=== PATIENT | male | born 1995 | race Caucasian/White ===

== ENCOUNTER 2018-11-01 23:09 | Inpatient (IN) | payer OTHER ==
[~2018-11-01] VITALS: Ht 180.3 cm; Wt 89.8 kg
[~2018-11-01 23:09] MED LIST: HYDR-1179 PO
--- NOTE | 2018-11-01 23:14 | ED.ADGEN ---
Past History Past Medical History: No Pertinent History, Anxiety, Bronchitis, Depression Past Surgical History: No Surgical History Alcohol Use: None Drug Use: None Adult General Chief Complaint Chief Complaint "... I was sick 3 weeks ago with influenza--he get a flu swab at [facility].... They put me on Tamiflu for 3 days .. I got better right away.. did fine for last couple of weeks... .. But now sick again sore throat, fever, chills, coughing..dyspnea.. 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 Symptoms have been present 2 days. Unable to make an appointment at [facility] because of schedule full at the clinic. No recent travel overseas. Up-to-date with vaccinations. Did have recent diagnosis 3 weeks ago of influenza and treated with Tamiflu. Patient reports return of symptoms he had 3 weeks ago. No specific ill contacts. Patient normally healthy.. Patient has as child preschool did have some asthma complaints. Pt. has no history of hospitalizations or treatments for asthma as a child or teenager. Patient does have a history of anxiety and depression. Patient nonsmoker. Review of Systems Review of Systems Constitutional: History of fever or chills [] Eyes: Denies change in visual acuity, redness, or eye pain [] HENT: History nasal congestion , drainage and sore throat [] Respiratory: History of nonproductive cough with burning sensation and wheezing. Dyspnea Cardiovascular: No additional information not addressed in HPI [] GI: Denies abdominal pain, nausea, vomiting, bloody stools or diarrhea [] : Denies dysuria or hematuria [] Musculoskeletal: Complaints of myalgia and arthralgia Integument: Denies rash or skin lesions [] Neurologic: Denies headache, focal weakness or sensory changes [] Endocrine: Denies polyuria or polydipsia [] All other systems were reviewed and found to be within normal limits, except as documented in this note. Family History Family History Noncontributory Current Medications Current Medications Current Medications Medications (Trade) Dose Ordered Sig/Andrés Start Time Stop Time Status Last Admin Dose Admin Albuterol Sulfate (Ventolin Hfa Inhaler) 2 puff 1X ONCE 11/02/18 00:15 11/02/18 01:08 DC 11/02/18 00:20 2 PUFF Albuterol/ Ipratropium (Duoneb) 3 ml 1X ONCE 11/02/18 01:30 11/02/18 01:58 DC 11/02/18 01:29 3 ML Azithromycin (Zithromax) 500 mg 1X ONCE 11/02/18 00:15 11/02/18 01:08 DC 11/02/18 00:42 500 MG Ceftriaxone Sodium 1 gm/ Sodium Chloride 50 ml @ 100 mls/hr 1X ONCE 11/02/18 00:15 11/02/18 01:08 DC 11/02/18 00:43 100 MLS/HR Ceftriaxone Sodium (Rocephin) 1 gm STK-MED ONCE 11/02/18 00:29 11/02/18 00:30 DC Prednisone (Prednisone) 50 mg 1X ONCE 11/01/18 23:45 11/02/18 01:08 DC 11/01/18 23:53 50 MG Sodium Chloride 50 ml @ As Directed STK-MED ONCE 11/02/18 00:29 11/02/18 00:30 DC Allergies telf-hqo-mrtelte Tylenol and Robitussin etc. Allergies Allergies Allergies Coded Allergies Type Severity Reaction Last Updated Verified No Known Drug Allergies 10/09/16 No Physical Exam Physical Exam Constitutional: Well developed, well nourished, moderately acute distress, non- toxic appearance. [] HENT: Normocephalic, atraumatic, bilateral external ears normal, oropharynx moist, injected pharynx postnasal drainage,, no oral exudates, nose swollen turbinates and rhinorrhea clear] Eyes: PERRLA, EOMI, conjunctiva normal, no discharge. [] Neck: Normal range of motion, no tenderness, supple, no stridor. [] Cardiovascular: Tachycardia Heart rate regular rhythm, no murmur [] Lungs & Thorax: Bilateral breath sounds equal apex with few scattered wheezes on auscultation. Patient does have some posterior rhonchi. Abdomen: Bowel sounds normal, soft, no tenderness, no masses, no pulsatile masses. [] Skin: Warm, dry, no erythema, no rash. Tattoos. Back: No tenderness, no CVA tenderness. [] Extremities: No tenderness, no cyanosis, no clubbing, ROM intact, no edema. [] No cording in legs. Muscular Neurologic: Alert and oriented X 3, normal motor function, normal sensory function, no focal deficits noted. [] Psychologic: Affect anxious, judgement normal, mood normal. [] Current Patient Data Vital Signs Vital Signs Date Time Temp Pulse Resp B/P (MAP) Pulse Ox O2 Delivery O2 Flow Rate FiO2 11/02/18 01:16 98 20 131/86 (101) 90 Room Air 11/01/18 23:10 99.3 Lab Results Laboratory Tests Test 11/01/18 23:55 11/02/18 00:40 Influenza Type A (Rapid) Negative (NEGATIVE) Influenza Type B (Rapid) Negative (NEGATIVE) Group A Streptococcus Rapid Negative (NEGATIVE) White Blood Count 10.9 x10^3/uL (4.0-11.0) Red Blood Count 5.55 x10^6/uL (4.30-5.70) Hemoglobin 17.9 g/dL (13.0-17.5) H Hematocrit 51.3 % (39.0-53.0) Mean Corpuscular Volume 93 fL (79-100) Mean Corpuscular Hemoglobin 32 pg (25-35) Mean Corpuscular Hemoglobin Concent 35 g/dL (31-37) Red Cell Distribution Width 12.9 % (11.5-14.5) Platelet Count 278 x10^3/uL (140-400) Neutrophils (%) (Auto) 74 % (31-73) H Lymphocytes (%) (Auto) 16 % (24-48) L Monocytes (%) (Auto) 9 % (0-9) Eosinophils (%) (Auto) 1 % (0-3) Basophils (%) (Auto) 1 % (0-3) Neutrophils # (Auto) 8.0 x10^3uL (1.8-7.7) H Lymphocytes # (Auto) 1.7 x10^3/uL (1.0-4.8) Monocytes # (Auto) 1.0 x10^3/uL (0.0-1.1) Eosinophils # (Auto) 0.1 x10^3/uL (0.0-0.7) Basophils # (Auto) 0.1 x10^3/uL (0.0-0.2) Prothrombin Time 11.0 SEC (9.4-11.4) Prothrombin Time INR 1.1 (0.9-1.1) PTT 32 SEC (23-33) D-Dimer (Mira) 0.22 mg/L (0.00-0.50) Sodium Level 139 mmol/L (136-145) Potassium Level 3.3 mmol/L (3.5-5.1) L Chloride Level 99 mmol/L (98-107) Carbon Dioxide Level 30 mmol/L (21-32) Anion Gap 10 (6-14) Blood Urea Nitrogen 12 mg/dL (8-26) Creatinine 0.9 mg/dL (0.7-1.3) Estimated GFR (Cockcroft-Gault) 106.5 Glucose Level 95 mg/dL (70-99) Calcium Level 9.5 mg/dL (8.5-10.1) Troponin I Quantitative < 0.017 ng/mL (0-0.055) KX-Nra-L-Type Natriuretic Peptide 17 pg/mL (0-124) EKG EKG [] Radiology/Procedures Radiology/Procedures My interpretation chest x-ray shows normal cardiac silhouette, does have patchy infiltrates some posterior bronchogram . [] No large loculations. Course & Med Decision Making Course & Med Decision Making Pertinent Labs and Imaging studies reviewed. (See chart for details). DC was planning on discharge home on Zithromax, prednisone, and MDI. Patient remained hypoxic after repeated treatments and required 2 L nasal cannula to keep sats above 90%. Pt. admitted to Dr. Bragg- for Respiratory Insuf. and Hypoxia. Suspect reactive airway, viral bronchitis/ pneumonia. Plan early discharge if maintains saturations on room air. [] Final Impression Final Impression 1. Respiratory insufficiency-hypoxia 2. Hx. influenza 3 weeks ago 3. Hypoxia 4. Viral Bronchitis/ Pneumonia 5. Reactive Airway Dragon Disclaimer Dragon Disclaimer This electronic medical record was generated, in whole or in part, using a voice recognition dictation system. Discharge Summary Visit Information Final Diagnosis Problems Medical Problems: (1) Bronchitis Status: Acute Brief Hospital Course Allergies Allergies Coded Allergies Type Severity Reaction Last Updated Verified No Known Drug Allergies 10/09/16 No Vital Signs Vital Signs Date Time Temp Pulse Resp B/P (MAP) Pulse Ox O2 Delivery O2 Flow Rate FiO2 11/02/18 01:16 98 20 131/86 (101) 90 Room Air 11/01/18 23:10 99.3 Lab Results Laboratory Tests Test 11/01/18 23:55 11/02/18 00:40 Influenza Type A (Rapid) Negative (NEGATIVE) Influenza Type B (Rapid) Negative (NEGATIVE) Group A Streptococcus Rapid Negative (NEGATIVE) White Blood Count 10.9 x10^3/uL (4.0-11.0) Red Blood Count 5.55 x10^6/uL (4.30-5.70) Hemoglobin 17.9 g/dL (13.0-17.5) Hematocrit 51.3 % (39.0-53.0) Mean Corpuscular Volume 93 fL (79-100) Mean Corpuscular Hemoglobin 32 pg (25-35) Mean Corpuscular Hemoglobin Concent 35 g/dL (31-37) Red Cell Distribution Width 12.9 % (11.5-14.5) Platelet Count 278 x10^3/uL (140-400) Neutrophils (%) (Auto) 74 % (31-73) Lymphocytes (%) (Auto) 16 % (24-48) Monocytes (%) (Auto) 9 % (0-9) Eosinophils (%) (Auto) 1 % (0-3) Basophils (%) (Auto) 1 % (0-3) Neutrophils # (Auto) 8.0 x10^3uL (1.8-7.7) Lymphocytes # (Auto) 1.7 x10^3/uL (1.0-4.8) Monocytes # (Auto) 1.0 x10^3/uL (0.0-1.1) Eosinophils # (Auto) 0.1 x10^3/uL (0.0-0.7) Basophils # (Auto) 0.1 x10^3/uL (0.0-0.2) Prothrombin Time 11.0 SEC (9.4-11.4) Prothromb Time International Ratio 1.1 (0.9-1.1) Activated Partial Thromboplast Time 32 SEC (23-33) D-Dimer (Mira) 0.22 mg/L (0.00-0.50) Sodium Level 139 mmol/L (136-145) Potassium Level 3.3 mmol/L (3.5-5.1) Chloride Level 99 mmol/L (98-107) Carbon Dioxide Level 30 mmol/L (21-32) Anion Gap 10 (6-14) Blood Urea Nitrogen 12 mg/dL (8-26) Creatinine 0.9 mg/dL (0.7-1.3) Estimated GFR (Cockcroft-Gault) 106.5 Glucose Level 95 mg/dL (70-99) Calcium Level 9.5 mg/dL (8.5-10.1) Troponin I Quantitative < 0.017 ng/mL (0-0.055) MH-Bwy-R-Type Natriuretic Peptide 17 pg/mL (0-124) Brief Hospital Course Mr. Bland is a 22 old male who presented with respiratory insufficiency and hypoxia. Unable to maintain saturations above 90 on room air admitted for further evaluation and treatment Dr. Bragg. Discharge Information Condition at Discharge: Improved Dischare Medications Current Medications Prednisone (Prednisone) 50 mg 1X ONCE PO Last administered on 11/01/18at 23:53 ; Admin Dose 50 MG; Start 11/01/18 at 23:45; Stop 11/02/18 at 01:08; Status DC Albuterol Sulfate (Ventolin Hfa Inhaler) 2 puff 1X ONCE INH Last administered on 11/02/18at 00:20; Admin Dose 2 PUFF; Start 11/02/18 at 00:15; Stop 11/02/18 at 01:08; Status DC Ceftriaxone Sodium 1 gm/ Sodium Chloride 50 ml @ 100 mls/hr 1X ONCE IV Last administered on 11/02/18at 00:43; Admin Dose 100 MLS/HR; Start 11/02/18 at 00:15 ; Stop 11/02/18 at 01:08; Status DC Azithromycin (Zithromax) 500 mg 1X ONCE PO Last administered on 11/02/18at 00: 42; Admin Dose 500 MG; Start 11/02/18 at 00:15; Stop 11/02/18 at 01:08; Status DC Ceftriaxone Sodium (Rocephin) 1 gm STK-MED ONCE .ROUTE ; Start 11/02/18 at 00:29 ; Stop 11/02/18 at 00:30; Status DC Sodium Chloride 50 ml @ As Directed STK-MED ONCE .ROUTE ; Start 11/02/18 at 00: 29; Stop 11/02/18 at 00:30; Status DC Albuterol/ Ipratropium (Duoneb) 3 ml 1X ONCE NEB Last administered on at 01:29; Admin Dose 3 ML; Start 11/02/18 at 01:30; Stop 11/02/18 at 01:58; Status DC Active Scripts Active Azithromycin Tablet (Azithromycin) 250 Mg Tablet 250 Mg PO DAILY 5 Days Prednisone 50 Mg Tablet 50 Mg PO DAILY 5 Days Acetaminophen 500 Mg Tablet 1,000 Mg PO QIDPRN PRN Benadryl (Diphenhydramine Hcl) 25 Mg Capsule 50 Mg PO QIDPRN PRN Zofran (Ondansetron Hcl) 8 Mg Tablet 8 Mg PO QIDPRN PRN Hydrocodone-Ibuprofen 7.5-200 (Hydrocodone/Ibuprofen) 1 Each Tablet 1 Tab PO PRN Q6HRS PRN Hydrocodone-Ibuprofen 7.5-200 (Hydrocodone/Ibuprofen) 1 Each Tablet 1 Tab PO PRN Q6HRS PRN Dragon Disclaimer This chart was dictated in whole or in part using Voice Recognition software in a busy, high-work load, and often noisy Emergency Department environment. It may contain unintended and wholly unrecognized errors or omissions. KATHY RUBIN MD Nov 01, 2018 23:14
[2018-11-01] MEDS ORDERED: ONDA8TAB9 PO (23:36)
[2018-11-01] MEDS ORDERED: HYDR-1179 PO (23:36)
[2018-11-01] MEDS ORDERED: ACET500T68 PO (23:38)
[2018-11-01] MEDS ORDERED: DIPH25CA58 PO (23:38)
[2018-11-01] MEDS ORDERED: predniSONE 10 MG TABLET PO ONE (23:45)
[2018-11-02] VITALS (7 sets, daily range): BP systolic 128–142; BP diastolic 81–89
[2018-11-02] MEDS ORDERED: AZITHROMYCIN 250 MG TABLET. PO ONE (00:15)
[2018-11-02] MEDS ORDERED: ALBUTEROL SULFATE 8GM INHALER. INH ONE (00:15)
[2018-11-02] MEDS ORDERED: cefTRIAXone SODIUM 1 GM VIAL ONE (00:29)
[2018-11-02] MEDS ORDERED: IV NORMAL SALINE 50ML 50 ML ONE (00:29)
[2018-11-02 00:41] LABS: INFLUENZA A PATIENT NEGATIVE (NEGATIVE); INFLUENZA B PATIENT NEGATIVE (NEGATIVE)
[2018-11-02 01:03] LABS: BASO # 0.1 x10^3/uL (0.0-0.2); BASO % 1 % (0-3); EOS # 0.1 x10^3/uL (0.0-0.7); EOS % 1 % (0-3); HEMATOCRIT 51.3 % (39.0-53.0); HEMOGLOBIN 17.9 g/dL (13.0-17.5); LYMPH # 1.7 x10^3/uL (1.0-4.8); LYMPH % 16 % (24-48); MEAN CORPUSCULAR HEMOGLOBIN 32 pg (25-35); MEAN CORPUSCULAR HGB CONC 35 g/dL (31-37); MEAN CORPUSCULAR VOLUME 93 fL (79-100); MONO % 9 % (0-9); NEUT % 74 % (31-73); PLATELET COUNT 278 x10^3/uL (140-400); RED BLOOD COUNT 5.55 x10^6/uL (4.30-5.70); RED CELL DISTRIBUTION WIDTH 12.9 % (11.5-14.5); WHITE BLOOD COUNT 10.9 x10^3/uL (4.0-11.0)
[2018-11-02 01:23] LABS: CALCIUM 9.5 mg/dL (8.5-10.1); CREATININE 0.9 mg/dL (0.7-1.3); GFR 106.5; POTASSIUM 3.3 mmol/L (3.5-5.1)
[2018-11-02] MEDS ORDERED: IPRATRPIUM/ALBUTEROL 0.5/2.5MG 3 ML NEBU. NEB ONE (01:30)
[2018-11-02] MEDS ORDERED: ONDANSETRON PF 4 MG/2 ML VIAL. IV PRN (02:00)
[2018-11-02] MEDS ORDERED: PRED50TA PO (02:06)
[2018-11-02] MEDS ORDERED: AZIT250T6 PO (02:07)
[2018-11-02] MEDS ORDERED: POTASSIUM CHLORIDE 20 MEQ TABLET.ER. PO ONE (04:00)
[2018-11-02] MEDS ORDERED: FLUO40CA9 PO (04:01)
[2018-11-02] MEDS: IPRATRPIUM/ALBUTEROL 0.5/2.5MG 3 ML NEBU. NEB SCH ×4 (05:20→21:25)
--- NOTE | 2018-11-02 08:07 | RAD ---
Chest, 2 views, 11/01/2018: HISTORY: Cough, fever, chills The heart size is normal. The lungs are clear. There is no evidence of pleural fluid. IMPRESSION: No acute cardiopulmonary abnormality is detected. Electronically signed by: Loc Crockett MD (11/02/2018 8:04 AM) [facility]
[2018-11-02] MEDS ORDERED: predniSONE 10 MG TABLET PO SCH (09:00)
--- NOTE | 2018-11-02 11:37 | EKG ---
[address] [address] Test Date: 2018-11-02 Test Time: 00:33:50 Pat Name: RAEGAN BURGOS Department: Room: 119 A Gender: M Occupational Work Experience Teacher: : 1995 Requested By: KATHY RUBIN Order Number: [id number] Reading MD: Bertin Perez Measurements Intervals [place] Rate: 87 P: 38 IA: 176 QRS: 73 QRSD: 106 T: 46 QT: 350 QTc: 422 Interpretive Statements SINUS RHYTHM NONSPECIFIC ST-T WAVE CHANGES. CONSIDER INFERIOR MYOCARDIAL DAMAGE Electronically Signed On 11-06-2018 10:40:49 BLUE [employer]PLIT [employer]IMMER by Bertin Perez
[2018-11-02] MEDS ORDERED: IOHEXOL 350 MG/ML 100 ML VIAL. IV ONE (16:45)
[2018-11-02] MEDS ORDERED: CONTRAST GIVEN MC PRN (16:45)
--- NOTE | 2018-11-02 17:06 | HP ---
ADMIT DATE: 11/02/2018 HISTORY OF PRESENT ILLNESS: The patient is a 22-year-old male patient who came to the Emergency Room complaining of fever, chills, pharyngitis, nonproductive cough, chest burning, myalgia, arthralgia and malaise. The symptoms have been present for 2 days, unable to make an appointment ____ because of scheduled follow the clinic. He apparently has had flu about 3 weeks ago. The patient denied any recent overseas travel or sick contact. His vaccination is up-to-date. He was treated with Tamiflu about 3 weeks ago. The patient reports return of symptoms, he had 3 weeks ago. The patient is normally healthy. As a child he did have asthma complaint and apparently when he was in high school he also was tested and had the medication for allergens. He has history of anxiety and depression for which he is on Prozac. PAST MEDICAL HISTORY: Significant for questionable bronchial asthma, anxiety and depression. PAST SURGICAL HISTORY: Unremarkable. ALLERGIES: He has no known drug allergies. MEDICATION: Prozac. FAMILY HISTORY: Significant for the fact that his sister younger has asthma. Both parents are healthy. SOCIAL HISTORY: He is single. He does not smoke cigarettes, but he vapes. He drinks alcohol occasionally. He does not use any drugs. PHYSICAL EXAMINATION: GENERAL: On arrival to the Emergency Room, he was clearly hypoxic and his oxygen saturation could not be improved despite multiple treatments with steroids and inhalers. On arrival there was no pallor, jaundice, cyanosis, or thyromegaly. No jugular venous distension. No limb edema. VITAL SIGNS: His heart rate was 90, blood pressure was 131/86, temperature was 99.3, respiratory rate was 18 and oxygen saturation was 90%. HEAD, EYES, EARS, NOSE AND THROAT: Showed normocephalic, atraumatic. NECK: Supple. HEART: Showed normal first and second heart sounds. No gallop, rub or murmur. CHEST: Clear to auscultation. No crepitation or rhonchi. ABDOMEN: Distended, soft, nontender. No guarding or rigidity. No organomegaly. All hernial orifices intact. Bowel sounds normal. NEUROLOGIC: He was awake, alert, responding appropriately. All cranial nerves are intact. EXTREMITIES: He moves extremities without difficulty, ambulates without assistance or assistive devices. LABORATORY DATA: His lab work on admission showed a white cell count of 10,900, hemoglobin was 17.9, hematocrit 51.3, MCV 93, and platelet count 278,000. His prothrombin time was 11, INR 1.1, aPTT was 32, and D-dimer was 0.22. His chemistry showed a serum sodium 139, potassium 3.3, chloride 99, bicarbonate 30, anion gap of 10, BUN 12, creatinine 0.9, estimated GFR was 160 mL per minute. His glucose was 95, calcium was 9.5 and beta natriuretic peptide was 17. His influenza A and B were negative. Group A Streptococcus was negative. His chest x-ray showed that the heart is normal. The lungs are clear. There is no evidence of pleural fluid. ASSESSMENT AND PLAN: The patient was admitted with acute hypoxic respiratory failure, possible viral pneumonitis and reactive airway/bronchial asthma. My plan is to continue with IV steroids. I will arrange for him to have a CT scan of the chest and also an echocardiogram to see if there is any arteriovenous shunt, given his extreme hypoxia and markedly elevated hemoglobin and hematocrit. NILSA TEAGUE MD DR: RONEN/rubia JOB#: [id number] / [id number]
--- NOTE | 2018-11-02 17:56 | RAD ---
PQRS Compliance Statement: One or more of the following individualized dose reduction techniques were utilized for this examination: 1. Automated exposure control 2. Adjustment of the mA and/or kV according to patient size 3. Use of iterative reconstruction technique CT angiography chest with contrast 11/02/2018 4:48 PM INDICATION: Acute hypoxia, coughing with history of flu COMPARISON: None available TECHNIQUE: Axial CT images of the chest were obtained after the intravenous administration of nonionic contrast, 100 mL Omnipaque 350. Coronal and sagittal reformats are provided. Maximum intensity projection images of the thoracic vasculature are provided. FINDINGS: The thyroid gland is normal in appearance. There are no pathologically enlarged axillary, mediastinal or hilar lymph nodes. The heart size is within normal limits. No significant pericardial effusion. Thoracic aorta is normal in course and caliber. Minimal residual thymic tissue is visualized. There is inadequate opacification of the pulmonary arterial system with limited evaluation of the segmental and subsegmental pulmonary arteries. There there are no filling defects within the pulmonary arterial system to suggest acute or chronic pulmonary embolus. There are no suspicious solid noncalcified pulmonary nodules. There is bronchial wall thickening compatible with bronchitis. Mucous plugging is identified in the bilateral lower lobes with subpleural bandlike consolidative changes most favoring subsegmental atelectasis. Early or resolving pulmonary infiltrate may have similar appearance. There are no pleural effusions. No pulmonary vascular congestion or pneumothorax. Visualized portions of the upper abdomen are within normal limits. No suspicious osseous lesions are visualized. IMPRESSION: There is no evidence for acute or chronic pulmonary embolism involving the main and lobar pulmonary arteries. Bilateral lower lobe bronchial wall thickening compatible with bronchitis with associated mucous plugging and likely postobstructive atelectasis versus pneumonitis. Electronically signed by: Adeline Narayanan MD (11/02/2018 5:53 PM) [facility]
[2018-11-02] MEDS: AZITHROMYCIN 250 MG TABLET. PO SCH (20:39)
[2018-11-02] MEDS: methylPREDNISolone SOD SUCC PF 40 MG/ML VIAL. IV SCH (20:40)
[2018-11-03] MEDS: methylPREDNISolone SOD SUCC PF 40 MG/ML VIAL. IV SCH ×3 (05:13→20:53)
[2018-11-03 05:28] VITALS: BP 148/90
[2018-11-03] MEDS: IPRATRPIUM/ALBUTEROL 0.5/2.5MG 3 ML NEBU. NEB SCH (05:51)
[2018-11-03 06:48] LABS: BASO % 0 % (0-3); EOS % 0 % (0-3); HEMATOCRIT 49.4 % (39.0-53.0); HEMOGLOBIN 17.4 g/dL (13.0-17.5); LYMPH # 1.2 x10^3/uL (1.0-4.8); LYMPH % 15 % (24-48); MEAN CORPUSCULAR HEMOGLOBIN 33 pg (25-35); MEAN CORPUSCULAR HGB CONC 35 g/dL (31-37); MEAN CORPUSCULAR VOLUME 93 fL (79-100); MONO # 0.4 x10^3/uL (0.0-1.1); MONO % 5 % (0-9); NEUT # 6.4 x10^3uL (1.8-7.7); NEUT % 80 % (31-73); PLATELET COUNT 295 x10^3/uL (140-400); RED BLOOD COUNT 5.34 x10^6/uL (4.30-5.70); RED CELL DISTRIBUTION WIDTH 12.9 % (11.5-14.5)
[2018-11-03 07:01] LABS: ALBUMIN 4.1 g/dL (3.4-5.0); CALCIUM 9.6 mg/dL (8.5-10.1); CREATININE 0.9 mg/dL (0.7-1.3); GFR 106.5; POTASSIUM 3.8 mmol/L (3.5-5.1); TOTAL BILIRUBIN 0.9 mg/dL (0.2-1.0); TOTAL PROTEIN 8.1 g/dL (6.4-8.2)
[2018-11-03 10:46] VITALS: BP 118/67
--- NOTE | 2018-11-03 10:51 | CARD ---
MR#: [id number] Date of Study: 11/03/2018 Ordering Physician: NILSA TEAGUE, Referring Physician: NILSA TEAGUE, Tech: Candy Zaragoza APPROVED REPORT EXAM: Two-dimensional and M-mode echocardiogram with Doppler and color Doppler. Other Information Quality : GoodHR: 84bpm INDICATION Hypoxia Echo Enhancing Agent Indication: Rule Out Septal Defect Agent/Amount Used: Agitated [id number] 2D DIMENSIONS RVDd3.4 (2.9-3.5cm)Left Atrium(2D)3.6 (1.6-4.0cm) IVSd0.9 (0.7-1.1cm)Aortic Root(2D)3.5 (2.0-3.7cm) LVDd5.4 (3.9-5.9cm)LVOT Diameter2.2 (1.8-2.4cm) PWd1.0 (0.7-1.1cm)LVDs2.9 (2.5-4.0cm) FS (%) 46.2 %SV110.4 ml LVEF(%)77.1 (>50%) Aortic Valve AoV Peak Pako.174.4cm/sAoV VTI36.7cm AO Peak GR.12.2mmHgLVOT Peak Pako.136.9cm/s LVOT VTI 28.73cmAO Mean GR.7mmHg JIMMY (VMAX)2.23dp3NXY (VTI)2.99cm2 Mitral Valve MV E Npcrghgn23.6cm/sMV DECEL [id number] MV A Lmevnvnw09.8cm/sE/A Ratio1.3 Pulmonary Valve PV Peak Vosjbbbp129.0cm/sPV Peak Grad.6mmHg Tricuspid Valve TR P. Mbjaankv947zf/sRAP ZPRHRFXK8coKh TR Peak Gr.64euWnLZEY75exCd Pulmonary Vein S1 Aerjzipd82.8cm/sD2 Zfxsrson92.7cm/s LEFT VENTRICLE The left ventricle is normal size. There is normal left ventricular wall thickness. The left ventricu lar systolic function is normal. The Ejection Fraction is 55-60%. There is normal LV segmental wall m otion. The left ventricular diastolic function and filling is normal for age. RIGHT VENTRICLE The right ventricle is normal size. There is normal right ventricular wall thickness. The right ventr icular systolic function is normal. ATRIA The left atrium size is normal. The right atrium is borderline dilated. The interatrial septum is int act with no evidence for an atrial septal defect or patent foramen ovale as noted on 2-D or Doppler i maging. Injection of bubbles documented no interatrial shunt. AORTIC VALVE The aortic valve is normal in structure and function. Doppler and Color Flow revealed no significant aortic regurgitation. There is no significant aortic valvular stenosis. MITRAL VALVE The mitral valve is normal in structure and function. There is no evidence of mitral valve prolapse. There is no mitral valve stenosis. Doppler and Color Flow revealed no mitral valve regurgitation note d. TRICUSPID VALVE The tricuspid valve is normal in structure and function. Doppler and Color Flow revealed trace tricus pid regurgitation. There is no tricuspid valve stenosis. PULMONIC VALVE The pulmonary valve is normal in structure and function. Doppler and Color Flow revealed no pulmonic valvular regurgitation. GREAT VESSELS The aortic root is normal in size. The IVC is normal in size and collapses >50% with inspiration. PERICARDIAL EFFUSION There is no evidence of significant pericardial effusion. Critical Notification Critical Value: No <Conclusion> The left ventricular systolic function is normal. The Ejection Fraction is 55-60%. There is normal LV segmental wall motion. Trace tricuspid regurgitation. There is no evidence of significant pericardial effusion. Injection of bubbles documented no interatrial shunt. Signed by : Levon Salmeron, Electronically Approved : 11/03/2018 10:51:17
[2018-11-03 15:11] VITALS: BP 128/79
[2018-11-03 19:35] VITALS: BP 131/78
--- NOTE | 2018-11-03 20:28 | PN ---
DATE: 11/03/2018 SUBJECTIVE: The patient is resting flat, comfortably, in no apparent distress. He is on half liter of oxygen, maintaining his oxygen saturation at 94%. He is more comfortable. His cough is more productive today. We did a CT scan of the chest with PE protocol, which basically showed that there is no evidence of acute or chronic pulmonary embolism involving the main and lobar pulmonary arteries. He has bilateral lower lobe bronchial wall thickening compatible with bronchitis and with associated mucus plugging and likely post-obstructive atelectasis versus pneumonitis. We did also an echocardiogram with bubble study, which basically showed that his left ventricular systolic function is normal, ejection fraction 55-60%. He has normal left ventricular segmental wall motion, trace tricuspid regurgitation. There is no evidence of significant pericardial effusion. The injection of bubbles documented no intraatrial shunt. PHYSICAL EXAMINATION: GENERAL: When I examined him this morning he was resting slightly propped up in bed, clearly more comfortable. There was no pallor, jaundice, cyanosis, or thyromegaly. No jugular venous distension. No limb edema. VITAL SIGNS: His heart rate was 66, blood pressure was 118/67. His temperature was 97.4, respiratory rate 20, and oxygen saturation was 93% on 1-1/2 liters of oxygen. HEAD, EYES, EARS, NOSE, AND THROAT: Showed normocephalic, atraumatic. NECK: Supple. HEART: Showed normal first and second heart sounds with no gallop, rub, or murmur. CHEST: Clear to auscultation. No crepitation or rhonchi. ABDOMEN: Distended, soft, nontender. No guarding or rigidity. No organomegaly. All hernial orifice intact. Bowel sounds normal. NEUROLOGIC: He is awake, alert, responding appropriately. Cranial nerves intact. He moves extremities without difficulty, ambulates without assistance or assistive devices. LABORATORY DATA: His lab work showed a white cell count of 8000, hemoglobin 17.4, hematocrit 49, MCV 93, and platelet count 295,000. Serum sodium was 140, potassium 3.8, chloride 101, bicarbonate 26, anion gap of 13, BUN 15, creatinine 0.9, estimated GFR was 106 mL per minute. His glucose was 148, calcium was 9.6. Total bilirubin, AST, ALT, alkaline phosphatase were normal. His total protein was 8.1, albumin was 4.1. His influenza A and B are negative. Group A streptococcus rapid test was negative. ASSESSMENT: 1. Acute hypoxic respiratory failure. 2. Acute severe asthma. 3. Bronchopneumonia. 4. Secondary erythrocytosis. PLAN: To continue with steroid treatment. Continue with inhalers. Continue with IV antibiotic. NILSA TEAGUE MD DR: RONEN/rubia JOB#: [id number] / [id number]
[2018-11-03] MEDS: AZITHROMYCIN 250 MG TABLET. PO SCH (20:53)
[2018-11-04] MEDS: methylPREDNISolone SOD SUCC PF 40 MG/ML VIAL. IV SCH ×3 (05:36→21:50)
[2018-11-04 05:58] VITALS: BP 146/87
[2018-11-04] MEDS ORDERED: ALBU2.5V8 INH (10:01)
[2018-11-04] MEDS ORDERED: AZIT250T PO (10:01)
[2018-11-04] MEDS ORDERED: PRED20TA PO (10:01)
--- NOTE | 2018-11-04 10:59 | DS ---
DATE OF DISCHARGE: 11/04/2018 HOSPITAL COURSE: The patient is a 22-year-old male patient who was admitted with complaint of shortness of breath and fever, chills, pharyngitis, nonproductive cough, chest burning, myalgia, arthralgia and malaise. This symptoms have been present for about 2 days prior to admission and was evaluated in the Emergency Room, was found to be in acute hypoxic respiratory failure and marked wheezing and the patient was admitted with acute asthma exacerbation. He was treated with IV antibiotics, Solu-Medrol as well as nebulized treatment. His oxygen saturation initially was difficult to get above 90 without oxygen; however, I have seen him today on ambulation, he was not able to maintain his oxygen saturation 94% and 96% at rest. He stated that he was told that when he was younger, he had some cardiac problem and given his severe hypoxia initially and marked and the secondary erythrocytosis, we did order an echocardiogram, which basically showed no evidence of intraatrial shunt and therefore as he remains hemodynamically stable, his chest was clear today and his oxygen saturation is much improved, a decision was made to discharge him home to continue on oral antibiotic and tapering course of steroids and inhaler. I have also made an arrangement for him to be seen by the configuration manager at . PHYSICAL EXAMINATION: GENERAL: When I examined him today, he was sitting on the edge of the bed comfortably, in no apparent respiratory distress. No pallor, jaundice, cyanosis or thyromegaly. No jugular venous distention. No lower limb edema. VITAL SIGNS: His heart rate was 54, blood pressure was 146/87, his temperature was 97.3, respiratory rate was 16 and oxygen saturation was 96% on room air. HEENT: Examination of the head, eyes, ears, nose and throat showed normocephalic, atraumatic. NECK: Supple. HEART: Showed normal first and second heart sounds. No gallop, rub or murmur. CHEST: Clear to auscultation. No crepitation or rhonchi. ABDOMEN: Distended, soft, nontender. NEUROLOGIC: He was awake, alert, responding appropriately. His cranial nerves are intact. EXTREMITIES: He moves extremities without difficulty, ambulates without assistance or assistive devices. His intake and output are incompletely recorded. LABORATORY DATA: His lab work showed a white cell count of 8000, hemoglobin 17, hematocrit 49, MCV 93 and platelet count of 295,000 with normal manual differential. His chemistry showed a serum sodium 140, potassium 3.8, chloride 101, bicarbonate 16, anion gap of 13, BUN 15, creatinine was 0.9, estimated GFR was 160 mL per minute, his glucose 148, calcium was 9.6. Total bilirubin, AST, ALT, alkaline phosphatase were normal. Total protein was 8.1, albumin was 4.1. His influenza A and B were negative. Group A Strep test was negative. DISCHARGE MEDICATIONS: He was discharged home to continue albuterol sulfate, Proventil 2 puffs every 4 hours as needed, azithromycin 250 mg daily for 5 more days, prednisone 40 mg once a day for 3 days, then 30 mg once a day for 3 days, 20 mg once a day for 3 days, and 10 mg once a day for 3 days. Continue also his Prozac 40 mg daily. FINAL DISCHARGE DIAGNOSES: 1. Acute hypoxic respiratory failure, resolved. 2. Acute asthma exacerbation. 3. Depression. NILSA TEAGUE MD DR: RONEN/rubia JOB#: [id number] / [id number]
[2018-11-04 11:11] VITALS: BP 127/80
[2018-11-04] MEDS ORDERED: ALBUTEROL SULFATE 2.5 MG/3 ML NEBU. NEB PRN (14:30)
[2018-11-04] MEDS ORDERED: IPRATRPIUM/ALBUTEROL 0.5/2.5MG 3 ML NEBU. ONE (15:23)
[2018-11-04 15:26] VITALS: BP 133/87
[2018-11-04 19:25] VITALS: BP 147/80
[2018-11-04] MEDS ORDERED: MONTELUKAST 10 MG TABLET. PO SCH (21:00)
[2018-11-04] MEDS: AZITHROMYCIN 250 MG TABLET. PO SCH (21:46)
[2018-11-04 23:06] VITALS: BP 142/92
[2018-11-05 03:59] VITALS: BP 137/76
[2018-11-05] MEDS: methylPREDNISolone SOD SUCC PF 40 MG/ML VIAL. IV SCH (05:39)
[2018-11-05 06:33] VITALS: BP 134/85
[2018-11-05 07:12] LABS: HEMATOCRIT 50.4 % (39.0-53.0); HEMOGLOBIN 17.7 g/dL (13.0-17.5); RED BLOOD COUNT 5.44 x10^6/uL (4.30-5.70); WHITE BLOOD COUNT 10.9 x10^3/uL (4.0-11.0)
[2018-11-05 07:30] LABS: ALBUMIN 3.7 g/dL (3.4-5.0); CALCIUM 9.4 mg/dL (8.5-10.1); CREATININE 0.9 mg/dL (0.7-1.3); GFR 106.5; POTASSIUM 4.3 mmol/L (3.5-5.1); TOTAL BILIRUBIN 0.7 mg/dL (0.2-1.0); TOTAL PROTEIN 7.5 g/dL (6.4-8.2)
[2018-11-05] MEDS ORDERED: LACTOBACILLUS RHAMNOSUS GG 1 CAPSULE. PO SCH (09:00)
[2018-11-05] MEDS ORDERED: MAG HYDROX/AL HYDROX/SIMETH 30 ML ORAL.SUSP PO PRN (10:45)
[2018-11-05] MEDS ORDERED: PANTOPRAZOLE 40 MG TABLET. PO SCH (10:45)
--- NOTE | 2018-11-05 11:48 | DS ---
DATE OF DISCHARGE: 11/05/2018 The patient was initially planned to be discharged yesterday; however, he continued to be hypoxic and short of breath, so we decided to keep him on one more night. He did very well today. He maintained his oxygen saturation 94% on exercise and at rest. Heart rate remained within normal range. He has had no more chest tightness or wheezing and he was discharged home to follow with his primary care physician. He was given a prescription to go back to work in 11/13/2018 and to avoid any strenuous exercises. He was also advised to seek evaluation by assembler adjuster was given name of Dr. Arriola and Dr. Tom at [facility]. He probably needs a sleep study, but he has to go through the to be referred to all these facilities. He was also given a prescription for Protonix as he has apparently severe acid reflux. Advised to continue with tapering course of steroids, albuterol inhaler with a spacer as well as Zithromax. NILSA TEAGUE MD DR: RONEN/rubia JOB#: [id number] / [id number]
== END 2018-11-05 12:00 | disposition home or self-care (01) | DRG 871 ==
LOC: ER 23:09 → 1 SOUTH 11-02 01:30
PROVIDERS: ADMIT Internal Medicine; ATTEND Internal Medicine
DX: A41.9 Sepsis, unspecified organism (principal); J18.0 Bronchopneumonia, unspecified organism; J96.01 Acute respiratory failure with hypoxia; J45.901 Unspecified asthma with (acute) exacerbation; T17.890A Other foreign object in other parts of respiratory tract causing asphyxiation, initial encounter; D75.1 Secondary polycythemia; F32.9 Major depressive disorder, single episode, unspecified; Z82.5 Family history of asthma and other chronic lower respiratory diseases; F41.9 Anxiety disorder, unspecified
CPT/HCPCS: 36415; 71046; 71275; 80048; 80053; 83880; 84484; 85025; 85027; 85379; 85610; 85730; 87040; 87070; 87804; 87880; 93005; 93306; 94640; 96365; G0238; J0456; J0696; J2920; J7512; J7613; J7620; Q9967; 99285-25